=== PATIENT | male | born 1970 | race Caucasian/White ===

== ENCOUNTER 2019-11-15 13:32 | Day surgery (SDC) | payer OTHER, SELFPAY ==
[2019-11-15 13:39] VITALS: BP 154/94; PULSE 63; RESP 20; TEMP 36.3; O2SAT 96
--- NOTE | 2019-11-15 14:04 | DI.CT_ITS ---
EXAM: CT NECK CHEST W CLINICAL HISTORY: sensation of fb in throat/chest TECHNIQUE: CT examination of the neck and chest was performed with intravenous infusion of 100 cc of Omnipaque 350. COMPARISON: No exams were available for comparison FINDINGS: There is no evidence of a cervical mass or adenopathy. Vascular structures of the chest and neck alannah ear normal. Thyroid is unremarkable. No mediastinal mass or adenopathy. Lungs are clear. No pleur al effusion. Images obtained through the upper abdomen show unremarkable appearance of visualized po rtions of liver, spleen, pancreas, adrenals, and kidneys. The laryngeal structures are unremarkable. Trachea and tracheobronchial tree appear intact. There is irregular wall thickening of the esophagus in the superior to mid mediastinum and there is d eformity of the esophageal gas-filled lumen. There is no evidence of obstruction, there is gas and f luid in the distal esophagus and stomach. IMPRESSION: Findings as described could be associated with esophagitis or with esophageal mucosal injury from ing ested material. Possibility of esophageal neoplasm not excluded on the basis of this examination. Esophagoscopy could be suggested for further evaluation.
--- NOTE | 2019-11-15 14:09 | ED.GENADUL_ITS ---
Discharge Plan Disposition Patient Disposition: [facility] INPATIENT Condition: Serious Discharge Details Chief Complaint: ThroatFB Clinical Impression: Esophageal abnormality Primary Care Provider: None,None ED Provider: Michel Childs Home Meds and New Rx's Prescriptions: No Action clindamycin HCl 300 mg Capsule 300 mg PO TID RF: 0 Medical Decision Making 1415??49-year-old male presents 4 days status post dental extraction here with sensation of foreign body in his chest and throat that started 3 days ago after taking dose of clindamycin and has persisted. Lungs are clear to auscultation. Patient saturating well no respiratory distress. He dynamically stable. Concern for retained foreign body. Consider retained pill and esophageal irritation. I will obtain CT of the neck and chest. --Labs reviewed: Nondiagnostic. No leukocytosis. --CT interpreted by radiology: Mid esophagus with irregularity to esophageal wall with localized inflammation. No signs of perforation. I called and spoke with Dr. Ann, on-call surgery, who will admit the patient for diagnostic upper endoscopy HPI General Mode of arrival: ambulatory . Date/Time Provider Initiated Documentation: 11/15/19 13:45 . Limitations to Documentation: no limitations . Information obtained by: patient . HPI Narrative: 49-year-old male presents with sensation of foreign body in his throat. Patient states that he had a dental procedure 4 days ago. The day after the procedure he took his prescribed clindamycin, which he is tolerated well in the past, and shortly thereafter developed a sensation of foreign body in his upper chest and throat. Sensation was initially mild and has worsened. Now moderate intensity. Now localized to mid to upper chest. He is able to drink fluid but sensation is worse when he swallows solids. No fever. No nausea or vomiting. Related Data Home Medications Medication Instructions Recorded Confirmed clindamycin HCl 300 mg PO TID 11/15/19 11/15/19 Allergies Allergy/AdvReac Type Severity Reaction Status Date / Time Penicillins Allergy Other (See Unverified 11/15/19 13:44 Comment) General Stated Complaint: ThroatFB PARVIZ: 3 Review of Systems All systems reviewed & are unremarkable except as noted in HPI and below Constitutional Constitutional: Denies fever(s) Cardiovascular Cardiovascular: Denies dyspnea Respiratory Respiratory: Denies dyspnea PFSH Surgical History History of throat surgery (Acute) Social History Smoking/Tobacco Use Status: Never Alcohol Intake: current Alcohol Intake frequency: a few times a month Drug use: Occasionally Substance use type: marijuana Do you feel safe at home: Yes Do you feel safe in your relationship?: Yes Exam Const General: cooperative and no acute distress HENMT Mouth: oral mucosae normal and moist mucous membranes Throat: posterior oropharynx normal, uvula midline and no peritonsillar masses Eyes Conjunctivae: normal conjunctivae Sclera: normal sclerae Neck Neck: trachea midline and supple Resp Auscultation: clear to auscultation bilaterally, no rales, no rhonchi and no wheezes Cardio Jugular venous pressure: no JVD Rate: regular rate and not tachycardic Rhythm: regular rhythm GI Palpation: soft, not firm, no guarding, no masses, not rigid and nontender Skin General skin exam: no rashes or lesions noted Neuro General: patient alert, patient awake and tone normal Course Vital Signs Vital signs: Vital Signs Temperature 36.3 C L 11/15/19 13:39 Pulse 63 11/15/19 13:39 Respiratory Rate 20 11/15/19 13:39 Blood Pressure 154/94 H 11/15/19 13:39 Pulse Oximetry 96 11/15/19 13:39 Temperature 36.3 C L 11/15/19 13:39 Temperature Source Skin 11/15/19 13:39 Pulse 63 11/15/19 13:39 Respiratory Rate 20 11/15/19 13:39 Respiratory Effort Non-Labored 11/15/19 13:52 Respiratory Pattern Normal 11/15/19 13:52 Blood Pressure 154/94 H 11/15/19 13:39 Blood Pressure Position Sitting 11/15/19 13:39 Pulse Oximetry 96 11/15/19 13:39 Oxygen Delivery Method Room Air 11/15/19 13:39 Oxygen Flow Rate 0 11/15/19 13:39 Pain Level 7 11/15/19 13:39
[2019-11-15 14:22] LABS: Abs Immature Grans 0.04 10^3/uL (0.0-0.06); Absolute Basophil Count 0.04 10^3/uL (0.0-0.2); Absolute Eosinophil Count 0.21 10^3/uL (0.0-0.7); Absolute Lymphocyte Count 2.01 10^3/uL (1.2-3.4); Absolute Neutrophil Count 5.95 10^3/uL (1.2-6.7); Basophils % 0.5; Eosinophils % 2.4; HCT 45.6 % (40.0-50.0); HGB 15.9 g/dL (13.5-17.5); Immature Grans % 0.5; Lymphocytes % 22.7; MCHC 34.9 % (32.0-36.0); MCV 88.9 fL (80-95); MPV 11.5 fL (8.0-11.0); Monocytes % 6.8; Neutrophils % 67.1; Platelet Count 235 10^3/uL (130-400); RBC 5.13 10^6/uL (4.36-5.78); RDW 11.9 % (11.8-14.1); RDW-SD 38.5 fL; WBC 8.85 10^3/uL (4.4-10.8)
[2019-11-15 14:30] LABS: Anion Gap 8.9 mmol/L (3-11); BUN 11 mg/dL (7-18); CO2 27.1 mmol/L (21.0-32.0); CREATININE 1.04 mg/dL (0.70-1.30); Calcium 9.4 mg/dL (8.5-10.1); Chloride 104 mmol/L (98-107); Glucose 125 mg/dL (74-106); Potassium 3.8 mmol/L (3.5-5.1); Sodium 140 mmol/L (136-145)
[2019-11-15] MEDS: Omnipaque 350 MG/ML 100 ML BTL IJ (14:56)
[2019-11-15] MEDS: Omnipaque 350 MG/ML 50 ML BTL IJ (14:57)
--- NOTE | 2019-11-15 16:34 | HPE_ITS ---
Date of service: 11/15/19 Time of Service: 16:34 Assessment and Plan Assessment and plan (1) Dysphagia: Status: Acute Assessment and plan: A\\ 49 year old with 4 days of dysphagia. No history of GERD or Heartburn in the past. CT scan showed some thickening of the distal esophagus P\\ EGD with possible biopsies Risks, benefits and complications have been reviewed. Complications include but are not limited to bleeding, pain, perforation, sore throat, aspiration, and adverse reaction to the medications. Questions were entertained and answered to their satisfaction and they wished to proceed. No guarantees were given or implied. Discharge to home after EGD Qualifiers: Dysphagia type: unspecified Qualified Code(s): R13.10 - Dysphagia, unspecified History of Present Illness History of Present Illness Chief Complaint: Dysphagia Consults Consult date: 11/15/19 Requesting physician: Michel Childs Narrative: 49-year-old male presents with sensation of foreign body in his throat. Patient states that he had a dental procedure 4 days ago. The day after the procedure he took his prescribed clindamycin, which he is tolerated well in the past, and shortly thereafter developed a sensation of foreign body in his upper chest and throat. Sensation was initially mild and has worsened. Now moderate intensity. Now localized to mid to upper chest. He is able to drink fluid but sensation is worse when he swallows solids. No fever. No nausea or vomiting. EXAM: CT NECK CHEST W CLINICAL HISTORY: sensation of fb in throat/chest TECHNIQUE: CT examination of the neck and chest was performed with intravenous infusion of 100 cc of Omnipaque 350. COMPARISON: No exams were available for comparison FINDINGS: There is no evidence of a cervical mass or adenopathy. Vascular structures of the chest and neck appear normal. Thyroid is unremarkable. No mediastinal mass or adenopathy. Lungs are clear. No pleural effusion. Images obtained through the upper abdomen show unremarkable appearance of visualized portions of liver, spleen, pancreas, adrenals, and kidneys. The laryngeal structures are unremarkable. Trachea and tracheobronchial tree appear intact. There is irregular wall thickening of the esophagus in the superior to mid mediastinum and there is deformity of the esophageal gas-filled lumen. There is no evidence of obstruction, there is gas and fluid in the distal esophagus and stomach. IMPRESSION: Findings as described could be associated with esophagitis or with esophageal mucosal injury from ingested material. Possibility of esophageal neoplasm not excluded on the basis of this examination. Esophagoscopy could be suggested for further evaluation. Patient has no history of GERD or heart Burn. There is no cardiac history. Review of Systems Cardiovascular Cardiovascular: Denies chest pain, Denies chest pain at rest, Denies irregular heart rhythm, Denies dyspnea and Denies dyspnea on exertion Respiratory Respiratory: Reports cough, Denies dyspnea and Denies dyspnea on exertion Gastrointestinal Gastrointestinal: Reports as per HPI Genitourinary Genitourinary: Denies dysuria, Reports urinary incontinence and Denies urinary urgency Endocrine Endocrine: Reports system reviewed and no additional complaints, except as documented Hematologic/Lymphatic Hematologic/Lymphatic: Denies easy bruising and Denies lymphadenopathy FOR[facility]LY [facility], [facility] Medical History (Updated 11/15/19 @ 16:38 by Sharon Ann MD) S/P tooth extraction (Acute) Surgical History History of throat surgery (Acute) Social History Smoking/Tobacco Use Status: Never Alcohol Intake: current Alcohol Intake frequency: a few times a month Drug use: Occasionally Substance use type: marijuana Do you feel safe at home: Yes Do you feel safe in your relationship?: Yes Meds Home Medications and Allergies Home Medications Medication Instructions Recorded Confirmed Type clindamycin HCl 300 mg PO TID 11/15/19 11/15/19 History Allergies Allergy/AdvReac Type Severity Reaction Status Date / Time Penicillins Allergy Other (See Unverified 11/15/19 13:44 Comment) Exam Const General: healthy appearing and comfortable Orientation: alert and oriented x3 HENMT Head: normocephalic and atraumatic Eyes Pupils: PERRL Resp Effort & Inspection: normal respiratory effort Auscultation: clear to auscultation bilaterally Cardio Rate: regular rate Rhythm: regular rhythm Heart Sounds: no click, no gallops and no murmurs GI Inspection: normal to inspection Palpation: soft, no hepatosplenomegaly and nontender Results Labs Result diagrams: 11/15/19 13:50 11/15/19 13:50 Labs: Laboratory Results - last 24 hr 11/15/19 11/15/19 13:50 13:50 WBC 8.85 RBC 5.13 Hgb 15.9 Hct 45.6 MCV 88.9 MCH 31.0 MCHC 34.9 RDW 11.9 Plt Count 235 MPV 11.5 H Immature Gran % 0.5 Neutrophils % 67.1 Lymphocytes % 22.7 Monocytes % 6.8 Eosinophils % 2.4 Basophils % 0.5 Absolute Neutrophils 5.95 Absolute Lymphocytes 2.01 Absolute Monocytes 0.60 Absolute Eosinophils 0.21 Absolute Basophils 0.04 Sodium 140 Potassium 3.8 Chloride 104 Carbon Dioxide 27.1 Anion Gap 8.9 BUN 11 Creatinine 1.04 Estimated GFR/1.73 m2 >= 60.00 Glucose 125 H Calcium 9.4 Last Vital Signs Temp 97.3 F L 11/15/19 13:39 Pulse 63 11/15/19 13:39 Resp 20 11/15/19 13:39 BP 154/94 H 11/15/19 13:39 Pulse Ox 96 11/15/19 13:39 COVID-19 Screening Have you,or household,traveled outside [place] in last 14 days?: No Had IN PERSON contact w/suspected or confirmed C-19 person: No
--- NOTE | 2019-11-15 16:36 | W.ED.GENAD ---
Discharge Plan Disposition Patient Disposition: [facility] INPATIENT Condition: Serious Discharge Details Chief Complaint: ThroatFB Clinical Impression: Esophageal abnormality Attending Provider: Sharon Ann Primary Care Provider: None,None ED Provider: Aretha Farnsworth Discharge Data Discharge Date/Time-TO BE ENTERED AT DEPARTURE: 11/15/19 16:44 Medical Decision Making Received report from billing provider Dr. Amadeo HORTON regarding patient, patient is currently going to the OR for esophageal scope to rule out foreign body versus stricture. Will await disposition and recommendations from general surgeon Dr. Ann. 1650: Informed by staff that patient is not to come back to the ER department. HPI General Mode of arrival: ambulatory. Date/Time Provider Initiated Documentation: 11/15/19 13:45. Limitations to Documentation: no limitations. Information obtained by: patient. Related Data Home Medications Medication Instructions Recorded Confirmed clindamycin HCl 300 mg PO TID 11/15/19 11/15/19 Allergies Allergy/AdvReac Type Severity Reaction Status Date / Time Penicillins Allergy Other (See Unverified 11/15/19 13:44 Comment) General Stated Complaint: ThroatFB PARVIZ: 3 PFSH Medical History (Updated 11/15/19 @ 16:38 by Sharon Ann MD) S/P tooth extraction (Acute) Surgical History History of throat surgery (Acute) Social History Smoking/Tobacco Use Status: Never Alcohol Intake: current Alcohol Intake frequency: a few times a month Drug use: Occasionally Substance use type: marijuana Do you feel safe at home: Yes Do you feel safe in your relationship?: Yes Course Vital Signs Vital signs: Vital Signs Temperature 36.3 C L 11/15/19 13:39 Pulse 63 11/15/19 13:39 Respiratory Rate 20 11/15/19 13:39 Blood Pressure 154/94 H 11/15/19 13:39 Pulse Oximetry 96 11/15/19 13:39 Temperature 36.3 C L 11/15/19 13:39 Temperature Source Skin 11/15/19 13:39 Pulse 63 11/15/19 13:39 Respiratory Rate 20 11/15/19 13:39 Respiratory Effort Non-Labored 11/15/19 13:52 Respiratory Pattern Normal 11/15/19 13:52 Blood Pressure 154/94 H 11/15/19 13:39 Blood Pressure Position Sitting 11/15/19 13:39 Pulse Oximetry 96 11/15/19 13:39 Oxygen Delivery Method Room Air 11/15/19 13:39 Oxygen Flow Rate 0 11/15/19 13:39 Pain Level 7 11/15/19 13:39 Lab/Test Results Lab/Test Results: Laboratory Tests Range/Units 11/15/19 11/15/19 13:50 13:50 WBC (4.4-10.8) 10^3/uL 8.85 RBC (4.36-5.78) 10^6/uL 5.13 Hgb (13.5-17.5) g/dL 15.9 Hct (40.0-50.0) % 45.6 MCV (80-95) fL 88.9 MCH (27.0-33.0) pg 31.0 MCHC (32.0-36.0) % 34.9 RDW (11.8-14.1) % 11.9 Plt Count (130-400) 10^3/uL 235 MPV (8.0-11.0) fL 11.5 H Immature Gran % 0.5 Neutrophils % 67.1 Lymphocytes % 22.7 Monocytes % 6.8 Eosinophils % 2.4 Basophils % 0.5 Absolute Neutrophils (1.2-6.7) 10^3/uL 5.95 Absolute Lymphocytes (1.2-3.4) 10^3/uL 2.01 Absolute Monocytes (0.1-0.8) 10^3/uL 0.60 Absolute Eosinophils (0.0-0.7) 10^3/uL 0.21 Absolute Basophils (0.0-0.2) 10^3/uL 0.04 Sodium (136-145) mmol/L 140 Potassium (3.5-5.1) mmol/L 3.8 Chloride (98-107) mmol/L 104 Carbon Dioxide (21.0-32.0) mmol/L 27.1 Anion Gap (3-11) mmol/L 8.9 BUN (7-18) mg/dL 11 Creatinine (0.70-1.30) mg/dL 1.04 Estimated GFR/1.73 m2 (mL/min/1.73m2) >= 60.00 Glucose (74-106) mg/dL 125 H Calcium (8.5-10.1) mg/dL 9.4 Sign Out Sign Out Data: Sign Out Comment: Follow-up recommendations from surgery. Last updated by Michel Childs MD at 11/15/19 16:30
[2019-11-15] MEDS: Lactated Ringers 1,000 ML 80 ML IV (16:43)
[2019-11-15 16:47] VITALS: BP 149/91; PULSE 60; RESP 16; TEMP 36.4; O2SAT 99
--- NOTE | 2019-11-15 16:51 | STOM_PTH ---
PATIENT: Romeo Parks LOC: [facility] U#:[id number] AGE/SX: 49/M ROOM: RE11/15/[address]: Sharon Ann MD : 1970 BED: DIS: 11/15/2019 SPEC #: [id number] RECD: 11/15/19 17:32 STATUS: YUE REQ #: [id number] FANNY: 11/15/19 16:[address]: Sharon Ann DEPT: Surgical Specimen RECD BY: Zoraida Bueno ENTERED: 11/15/19 17:32 SP TYPE: STOMACH OTHR DR: None Tissues: 1 - STOMACH BIOPSY Procedures: GROSS AND MICRO LEVEL 4 Comments: [id number]
--- NOTE | 2019-11-15 17:05 | W.PM.ENDDOP ---
Date of service: 11/15/19 Time of Service: 17:05 Endoscopy Report DATE OF PROCEDURE: 11/15/19 PRE-OP DIAGNOSIS: Dysphagia POST-OP DIAGNOSIS: other (Gastritis, seveere esophagitis in the mid esophagus) PROCEDURE: EGD with biopsies SURGEON: Sharon Ann ANESTHESIA: other (General/ ASA 2E/ Brenda Fu CRNA) ESTIMATED BLOOD LOSS: 3 PATHOLOGY: other (Biopsies of stomach) COMPLICATIONS: None DISPOSITION: same day INDICATIONS: Mr. Parks is a pleasant 49 year old male who 4 days ago started to have difficulty swallowing after taking his first antibiotic. He is able to swallow but has discomfort when he is eating and drinking. He denies vomiting. FINDINGS: Severe esophagitis with bleeding at 30 cm. GE junction was normal. Inflammation and small ulcer in the stomach. PROCEDURE DESCRIPTION: After informed consent was obtained the patient was take to the procedure room and placed in a supine position. Monitors were applied and a time out was done. The patients name, date of , procedure type, allergies to medications and metal in their body was reviewed. A bite block was placed and the patient was sedated. Once sedated and comfortable the gastroscope was advanced through the oropharynx which was grossly normal into the esophagus. The proximal and distal esophagus were normal. In the mid-esophagus there was severe inflammation with bleeding noted. The scope was advanced into the stomach and through the pylorus into the 3rd portion of the duodenum. The duodenum was noted to be normal. The scope was retracted back into the stomach. There was moderate inflammation with small shallow ulcers. Biopsies were done to rule out H. pylori. The scope was retroflexed. The cardia and fundus were noted to be normal. There was no hiatal hernia noted. The scope was retracted back into the esophagus. The GE junction was at 40 cm and was normal. The Z line was regular. Again in the mid-esophagus there was severe inflammation and ulceration. Because there was evidence of bleeding, biopsies were not done. The scope was removed and the patient was woken up and taken back to [facility] in stable condition. Follow up: 2 weeks in the office. He will need another EGD in 6 weeks to make sure the inflammation is subsiding. I will Rx Carafate QID and Protonix 40 mg BID.
--- NOTE | 2019-11-15 17:12 | W.PM.DSUDISC ---
Discharge Plan Disposition Patient Disposition: HOME Condition: Improving Discharge Details Chief Complaint: ThroatFB Clinical Impression: Esophageal abnormality Reason For Visit: Dysphagia Attending Provider: Sharon Ann Primary Care Provider: None,None ED Provider: Aretha Farnsworth Home Meds and New Rx's Prescriptions: New omeprazole 40 mg capsule,delayed release(DR/EC) 40 mg PO BID Qty: 60 RF: 2 sucralfate [Carafate] 1 gram tablet 1 gm PO Q6H Qty: 56 RF: 0 Continued clindamycin HCl 300 mg Capsule 300 mg PO TID RF: 0 Discharge Instructions Instructions: Gastritis (DC), Diet for Stomach Ulcers and Gastritis (ED), Esophagitis (DC) Additional Instructions: Findings: Severe inflammation of the mid-esophagus Inflammation of the stomach Follow up: 11/26/2019 @ 08:30 Please call if you develop: fevers >101.5 Nausea or Vomiting Abdominal pain that is not transient DAY SURGERY UNIT POST ENDOSCOPY INSTRUCTIONS 1. Because there will be medication in your system for the next 24 hours, you may feel a little sleepy. Your coordination will be affected. Therefore: a. Do not drive or operate dangerous equipment for 24 hours. b. Do not drink alcohol beverages for 24 hours (not even beer). c. Plan to go home and rest for the day. 2. Generally there are no restrictions on your activity after a day or so has gone by, but you may feel a bit fatigued for a few days. 3 After you arrive home you may have a light meal and return to a normal diet as you can tolerate it without feeling sick to your stomach. 4. After surgery, you may feel pain or discomfort. This should be only transient, but if it persists please contact your doctor. 5. If there are any questions regarding the findings of your procedure, please feel free to contact your doctor. 6. If you are unable to contact your doctor with a problem, contact the hospital at [phone]. 7. Continue all your regular medications unless directed otherwise. I understand the above instructions and have no questions. Signature of Patient or Responsible Adult Escort Date/Time Name of Responsible Adult Escort Signature of Nurse Date/Time Referrals: Sharon Ann MD [ [facility] STAFF PHYSICIAN] - 11/26/19 8:30 am Activity:: Activity as Tolerated Diet:: low acid, soft Discharge Orders Discharge Orders: Discharge Order (Routine); Ordered 11/15/19 Ordered By: Sharon Ann DS: Diagnosis Discharge Diagnosis (1) Dysphagia: Status: Acute (2) Esophagitis determined by endoscopy: Status: Acute (3) Gastritis determined by endoscopy: Status: Acute
[2019-11-15 17:22] VITALS: BP 142/94; PULSE 66; RESP 16; TEMP 36.2; O2SAT 96
== END 2019-11-15 17:50 | disposition home or self-care (01) ==
LOC: ER 16:35 → DSU 16:39
PROVIDERS: Student in an Organized Health Care Education/Training Program; Emergency Provider Registered Nurse Emergency; Referring Provider Registered Nurse Emergency; Visit Provider Surgery
PROC: 0DC68ZZ Extirpation of Matter from Stomach, Via Natural or Artificial Opening Endoscopic (ICD-10-PCS; CPT 43247; principal; 2019-11-15 16:50)
DX: R13.10 Dysphagia, unspecified (principal); K31.89 Other diseases of stomach and duodenum; K20.8 Other esophagitis; K22.8 Other specified diseases of esophagus; K25.9 Gastric ulcer, unspecified as acute or chronic, without hemorrhage or perforation; K29.70 Gastritis, unspecified, without bleeding
CPT/HCPCS: 43239; 36415; 70491; 80048; 88305; 99222; 99285; 71260; 85025; 99283; J2001; J3490; Q9967

== ENCOUNTER 2020-07-18 09:27 | Outpatient (REF) | payer OTHER, SELFPAY ==
[2020-07-18 16:07] LABS: Anion Gap 11.5 mmol/L (3-11); BUN 10 mg/dL (7-18); CO2 28.5 mmol/L (21.0-32.0); Calcium 9.4 mg/dL (8.5-10.1); Calculated LDL 179 mg/dL (<100); Chloride 105 mmol/L (98-107); Cholesterol 250 mg/dL (<200); Glucose 90 mg/dL (74-106); HDL Cholesterol 42 mg/dL (40-60); Potassium 4.4 mmol/L (3.5-5.1); Sodium 145 mmol/L (136-145); Triglyceride 146 mg/dL (<150)
[2020-07-18 22:32] LABS: PSA, Screening 0.6 ng/mL (0.0-3.5)
== END 2020-07-18 09:28 | disposition home or self-care (01) ==
LOC: LBN 09:27
PROVIDERS: Referring Provider Physician Assistant; Visit Provider Physician Assistant
DX: Z00.00 Encounter for general adult medical examination without abnormal findings (principal); Z13.228 Encounter for screening for other metabolic disorders; Z13.220 Encounter for screening for lipoid disorders; Z12.5 Encounter for screening for malignant neoplasm of prostate
CPT/HCPCS: 80048; 80061; 84153